=== PATIENT | male | born 1970 | race Caucasian/White ===

== ENCOUNTER 2017-08-31 15:28 | Emergency (ER) | payer SELFPAY ==
[~2017-08-31] VITALS: Ht 182.9 cm; Wt 83.9 kg
[~2017-08-31 15:28] MED LIST: ALBU90OI INH; CEPH500 PO; CIPR500 PO; CRUTCH3 USE; CYCL10 PO; HYDACE5 PO; LORA10ER PO; NAPR500 PO; NAPR550 PO; OXYACE5T PO; PENVK500 PO; PRED20 PO; PROACE100 PO; PRODEXEL PO; RXPROACE PO; SULTRIDS PO; TRAM50 PO
[2017-08-31] MEDS ORDERED: IBUP800 PO (16:05)
== END 2017-08-31 16:11 | disposition home or self-care (01) ==
LOC: ER 15:28
DX: M25.571 Pain in right ankle and joints of right foot (principal); Z79.2 Long term (current) use of antibiotics; Z79.891 Long term (current) use of opiate analgesic
CPT/HCPCS: 29515; 73610; 99283

== ENCOUNTER 2018-12-12 08:00 | Day surgery (SDC) | payer OTHER ==
[~2018-12-12] VITALS: Ht 182.9 cm; Wt 80.2 kg
[~2018-12-12 08:00] MED LIST changes: +IBUP800 PO
--- NOTE | 2018-12-12 08:47 | NUR ---
PATIENT GAVE PERMISSION FOR ME TO CARE FOR HIM TODAY 12/12/18. History, Chart, Medications and Allergies reviewed before start of procedure.Patient confirms NPO status and agrees with scheduled surgery. Patient states colon prep results clear.Lungs clear T/O to Auscultation.
--- NOTE | 2018-12-12 08:48 | NUR ---
STUDENT RN ASSISTING IN PRE PROCEDURE CARE. AGREE WITH HER CHARTING AND CARE
--- NOTE | 2018-12-12 09:41 | NUR ---
12/12/18 0941 Mone Mcneal History, Chart, Medications and Allergies reviewed before start of procedure. Patient confirms NPO status and agrees with scheduled surgery. PATIENT DETERMINED TO BE ASA APPROPRIATE FOR PROPOFOL SEDATION PRIOR TO START OF PROCEDURE BY DR. ALCOCER. 3-LEAD EKG REVIEWED WITH PHYSICIAN PRIOR TO START OF PROCEDURE. MONITOR INTACT WITH CONTINUOUS PULSE OXIMETRY AND INTERMITTENT BP.
== END 2018-12-12 22:44 | disposition home or self-care (01) ==
LOC: ORSCMMR 08:00 → ORD 09:00 → ORSCMMR 09:00
PROVIDERS: Internal Medicine Gastroenterology
PROC: 0DBM8ZX Excision of Descending Colon, Via Natural or Artificial Opening Endoscopic, Diagnostic (ICD-10-PCS; principal; 2018-12-12 09:00)
PROC: 0DBN8ZX Excision of Sigmoid Colon, Via Natural or Artificial Opening Endoscopic, Diagnostic (ICD-10-PCS; principal; 2018-12-12 09:00)
DX: K62.5 Hemorrhage of anus and rectum (principal); K63.5 Polyp of colon; D12.4 Benign neoplasm of descending colon; K57.30 Diverticulosis of large intestine without perforation or abscess without bleeding; F17.210 Nicotine dependence, cigarettes, uncomplicated
CPT/HCPCS: 88305; J7120

== ENCOUNTER 2019-05-07 16:06 | Emergency (ER) | payer SELFPAY ==
[~2019-05-07] VITALS: Ht 182.9 cm; Wt 83.0 kg
== END 2019-05-07 16:22 | disposition left against medical advice (07) ==
LOC: ER 16:06
DX: Z53.21 Procedure and treatment not carried out due to patient leaving prior to being seen by health care provider (principal)

== ENCOUNTER 2024-02-02 09:01 | Emergency (ER) | payer OTHER ==
[~2024-02-02] VITALS: Ht 182.9 cm; Wt 86.2 kg
[2024-02-02 09:26] VITALS: BP 119/79
[2024-02-02] MEDS ORDERED: HYDR1TAB94 PO (10:49)
== END 2024-02-02 10:59 | disposition home or self-care (01) ==
LOC: ER 09:01
DX: S52.572A Other intraarticular fracture of lower end of left radius, initial encounter for closed fracture (principal); F17.200 Nicotine dependence, unspecified, uncomplicated; V19.9XXA Pedal cyclist (driver) (passenger) injured in unspecified traffic accident, initial encounter
CPT/HCPCS: 73110; 99283-25

== ENCOUNTER 2024-09-17 06:28 | Emergency (ER) | payer OTHER ==
[~2024-09-17] VITALS: Ht 182.9 cm; Wt 81.7 kg
[~2024-09-17 06:28] MED LIST changes: +HYDR1TAB94 PO
[2024-09-17] MEDS ORDERED: Ketorolac Tromethamine 30mg Vial IV ONE (06:40)
[2024-09-17 06:51] LABS: BASOPHILS ABSOLUTE AUTO 0.08 K/mm3 (0.00-0.23); BASOPHILS PERCENT AUTO 1 % (0-2); EOSINOPHILS ABSOLUTE AUTO 0.19 K/mm3 (0.00-0.68); EOSINOPHILS PERCENT AUTO 2 % (0-6); Hematocrit 41.4 % (37.0-53.0); Hemoglobin 14.4 g/dL (13.5-17.5); IMMATURE GRAN ABSOLUTE AUTO 0.03 K/mm3 (0.00-0.10); IMMATURE GRAN PERCENT AUTO 0 % (0-1); LYMPHOCYTES ABSOLUTE AUTO 0.85 K/mm3 (0.84-5.20); LYMPHOCYTES PERCENT AUTO 8 % (21-46); MONOCYTES ABSOLUTE AUTO 1.29 K/mm3 (0.16-1.47); MONOCYTES PERCENT AUTO 12 % (4-13); Mean Corpuscular HGB 33.3 pg (26.0-34.0); Mean Corpuscular HGB Conc 34.8 g/dL (31.5-36.5); Mean Corpuscular Volume 96 fL (80-100); Mean Platelet Volume 9.5 fL (9.1-12.4); NEUTROPHILS ABSOLUTE AUTO 8.39 K/mm3 (1.96-9.15); NEUTROPHILS PERCENT AUTO 78 % (41-73); Platelet Count 222 K/mm3 (150-400); RDW Coefficient Variation 13.6 % (11.7-14.2); RDW Standard Deviation 48.5 fL (35.1-46.3); Red Blood Cell Count 4.33 M/mm3 (4.30-5.90); White Blood Cell Count 10.83 K/mm3 (4.00-11.30)
[2024-09-17 07:08] LABS: Bun/Creatinine Ratio 19.2 (12.0-20.0); Creatinine, Blood 0.73 mg/dL (0.60-1.20); Potassium, Blood 4.2 mmol/L (3.5-5.5)
[2024-09-17] MEDS ORDERED: BENZ100A PO (08:36)
[2024-09-17] MEDS ORDERED: ALBU90OI INH (08:36)
[2024-09-17] MEDS ORDERED: PRED20 PO (08:36)
[2024-09-17 08:58] VITALS: BP 126/76
== END 2024-09-17 09:13 | disposition home or self-care (01) ==
LOC: ER 06:28
PROVIDERS: Emergency Medicine
DX: S29.011A Strain of muscle and tendon of front wall of thorax, initial encounter (principal); J06.9 Acute upper respiratory infection, unspecified; Z79.810 Long term (current) use of selective estrogen receptor modulators (SERMs); X58.XXXA Exposure to other specified factors, initial encounter
CPT/HCPCS: 71045; 80048; 84484; 85025; 93005; 93010; 96374; 99284-25; J1885

== ENCOUNTER 2025-02-06 15:33 | Emergency (ER) | payer OTHER ==
[~2025-02-06] VITALS: Ht 182.9 cm; Wt 77.1 kg
[~2025-02-06 15:33] MED LIST changes: +BENZ100A PO
[2025-02-06 16:06] VITALS: BP 114/77
[2025-02-06] MEDS ORDERED: Ondansetron HCl 2 MG / ML 2ML Vial IV ONE (16:15)
[2025-02-06] MEDS ORDERED: NS 1,000 ML IV SCH (16:15)
[2025-02-06 16:56] LABS: BASOPHILS ABSOLUTE AUTO 0.08 K/mm3 (0.00-0.23); BASOPHILS PERCENT AUTO 1 % (0-2); EOSINOPHILS ABSOLUTE AUTO 0.11 K/mm3 (0.00-0.68); EOSINOPHILS PERCENT AUTO 2 % (0-6); Hematocrit 39.0 % (37.0-53.0); Hemoglobin 13.4 g/dL (13.5-17.5); IMMATURE GRAN ABSOLUTE AUTO 0.01 K/mm3 (0.00-0.10); IMMATURE GRAN PERCENT AUTO 0 % (0-1); LYMPHOCYTES ABSOLUTE AUTO 1.94 K/mm3 (0.84-5.20); LYMPHOCYTES PERCENT AUTO 27 % (21-46); MONOCYTES ABSOLUTE AUTO 0.66 K/mm3 (0.16-1.47); MONOCYTES PERCENT AUTO 9 % (4-13); Mean Corpuscular HGB Conc 34.4 g/dL (31.5-36.5); Mean Corpuscular Volume 95 fL (80-100); NEUTROPHILS ABSOLUTE AUTO 4.42 K/mm3 (1.96-9.15); NEUTROPHILS PERCENT AUTO 61 % (41-73); NRBC ABSOLUTE 0.00 K/mm3 (0.00-0.02); NRBC Auto 0.0 /100 WBC (0.0-0.2); Platelet Count 324 K/mm3 (150-400); RDW Coefficient Variation 13.0 % (11.7-14.2); RDW Standard Deviation 44.5 fL (35.1-46.3)
[2025-02-06 17:11] LABS: Alanine Aminotransfer (ALT/SGP 36.0 U/L (12-78); Albumin, Blood 3.1 g/dL (3.4-5.0); Albumin/Globulin Ratio 1.0 (0.8-1.8); Anion Gap 4.0 mmol/L (3-11); Aspartate Aminotrans (AST/SGOT 23.0 U/L (12-37); Bilirubin, Total 0.3 mg/dL (0.1-1.0); Blood Urea Nitrogen 20.0 mg/dL (8-24); CO2, Blood 31.0 mmol/L (21-32); Calcium, Blood 8.5 mg/dL (8.5-10.1); Chloride, Blood 107.0 mmol/L (98-108); Creatinine, Blood 1.07 mg/dL (0.60-1.20); Globulin, Blood 3.1 g/dL (2.2-4.0); Glucose, Blood 103.0 mg/dL (70-99); Potassium, Blood 4.4 mmol/L (3.5-5.5); Sodium, Blood 138.0 mmol/L (136-145); Total Protein, Blood 6.2 g/dL (6.4-8.2)
== END 2025-02-06 18:28 | disposition home or self-care (01) ==
LOC: ER 15:33
PROVIDERS: Student in an Organized Health Care Education/Training Program
DX: R11.2 Nausea with vomiting, unspecified (principal); R55 Syncope and collapse; Z79.52 Long term (current) use of systemic steroids; F17.200 Nicotine dependence, unspecified, uncomplicated
CPT/HCPCS: 80053; 83690; 84484; 85025; 93005; 93010; 96361; 96374; 99284-25; J2405; J7030

== ENCOUNTER 2025-07-01 10:26 | Emergency (ER) | payer OTHER ==
[~2025-07-01] VITALS: Ht 177.8 cm; Wt 76.7 kg
[2025-07-01 10:41] VITALS: BP 134/90
[2025-07-01] MEDS ORDERED: HYDROcodone 5-APAP 325 TAB PO ONE (11:10)
[2025-07-01] MEDS ORDERED: Norco 5-325 Ta1 EACH PO (11:49)
[2025-07-01] MEDS ORDERED: FentaNYL Citrate 50 MCG/ML 2 ML Injection IM ONE (12:05)
== END 2025-07-01 12:42 | disposition home or self-care (01) ==
LOC: ER 10:26
DX: S42.431A Displaced fracture (avulsion) of lateral epicondyle of right humerus, initial encounter for closed fracture (principal); V29.99XA Rider (driver) (passenger) of other motorcycle injured in unspecified traffic accident, initial encounter; F17.200 Nicotine dependence, unspecified, uncomplicated
CPT/HCPCS: 73070; 96372; 99283-25; A9270; J3010